=== PATIENT | female | born 1975 | race Caucasian/White ===

== ENCOUNTER 2018-10-17 11:48 | Outpatient (REF) | payer BC, SELFPAY ==
[2018-10-17 20:43] LABS: HGB 13.2 g/dL (12.0-15.5)
[2018-10-17 21:03] LABS: ALT 37 U/L (12-78); AST 25 U/L (15-37); Albumin 3.6 g/dL (3.4-5.0); Alkaline Phosphatase 46 U/L (46-116); Anion Gap 9.7 mmol/L (3-11); BUN 8 mg/dL (7-18); Bilirubin, Total 0.3 mg/dL (0.2-1.0); CO2 26.3 mmol/L (21.0-32.0); CREATININE 0.77 mg/dL (0.55-1.02); Chloride 103 mmol/L (98-107); Glucose 99 mg/dL (70-100); Potassium 3.7 mmol/L (3.5-5.1); Sodium 139 mmol/L (136-145); TSH 0.02 uIU/mL (0.358-3.74); Total Protein 6.7 g/dL (6.4-8.2)
[2018-10-20 09:40] LABS: Prolactin 10.7 ng/ml
== END 2018-10-17 12:08 ==
LOC: LBN 11:48
PROVIDERS: PCP Family Medicine; Visit Provider Internal Medicine Endocrinology, Diabetes & Metabolism
DX: E06.5 Other chronic thyroiditis (principal)
CPT/HCPCS: 80053; 84146; 84443; 85014; 85018

== ENCOUNTER 2019-08-24 12:55 | Outpatient (REF) | payer BC, SELFPAY ==
--- NOTE | 2019-08-24 12:00 | PAPFT_PTH ---
PATIENT: Shereen Dennison LOC: [facility] U#:[id number] AGE/SX: 44/F ROOM: RE08/24/[address]: Cayla Arreola : 1975 BED: DIS: 08/24/2019 SPEC #: [id number] RECD: 08/25/19 13:05 STATUS: DELBERT REQ #: [id number] CAROL: 08/24/19 12:[address]: Cayla Arreola DEPT: [facility] Cytology RECD BY: Pili Shepherd ENTERED: 08/25/19 13:05 SP TYPE: PAPFT OTHR DR: Pooja Goyal Tissues: 1 - CX/ENDOCX FOR PAP SMEARS Procedures: PAP THIN PREP/[facility] Screening Comments: [id number] (UNSATISFACTORY FOR EVALUATION)
[2019-08-24 21:50] LABS: Abs Immature Grans 0.01 k/cumm (0.0-0.09); Absolute Basophil Count 0.03 k/cumm (0.0-0.2); Absolute Eosinophil Count 0.17 k/cumm (0.0-0.7); Absolute Lymphocyte Count 1.16 k/cumm (1.2-3.4); Absolute Monocyte Count 0.35 k/cumm (0.11-0.7); Absolute Neutrophil Count 3.14 k/cumm (1.2-6.7); Basophils % 0.6; Eosinophils % 3.5; HCT 40.2 % (36.0-46.0); HGB 13.6 g/dL (12.0-15.5); Immature Grans % 0.2; Lymphocytes % 23.9; Mean Corp. HGB Concentration 33.8 g/dL (32.0-36.0); Mean Corpuscular Hemoglobin 33.2 pg (27.0-33.0); Mean Platelet Volume 11.4 fL (8.0-11.0); Monocytes % 7.2; Neutrophils % 64.6; Platelet Count 177 x1000/uL (130-400); White Blood Cell Count 4.86 k/cumm (4.4-10.8)
[2019-08-24 22:11] LABS: BUN 14 mg/dL (7-18); CREATININE 0.69 mg/dL (0.55-1.02); Calcium 9.5 mg/dL (8.5-10.1); Calculated LDL 60 mg/dL; Chloride 102 mmol/L (98-107); Cholesterol 186 mg/dL (50-200); Glucose 96 mg/dL (70-100); HDL Cholesterol 121 mg/dL (40-60); Potassium 4.3 mmol/L (3.5-5.1); Sodium 139 mmol/L (136-145); TSH (W/Ref FT4) 0.08 uIU/mL (0.36-3.74); Triglyceride 27 mg/dL (30-150)
[2019-08-24 22:43] LABS: FREE T4 0.65 ng/dL (0.76-1.46)
== END 2019-08-24 13:15 ==
LOC: NCHCN 12:55
PROVIDERS: PCP Family Medicine; Visit Provider Family Medicine
DX: Z00.00 Encounter for general adult medical examination without abnormal findings (principal); E05.00 Thyrotoxicosis with diffuse goiter without thyrotoxic crisis or storm; N91.1 Secondary amenorrhea; E05.80 Other thyrotoxicosis without thyrotoxic crisis or storm; E03.9 Hypothyroidism, unspecified; R53.83 Other fatigue; Z12.4 Encounter for screening for malignant neoplasm of cervix
CPT/HCPCS: 80048; 80061; 88142; 84439; 84443; 85025

== ENCOUNTER 2020-05-19 15:55 | Outpatient (REF) | payer BC, SELFPAY ==
--- NOTE | 2020-05-19 14:43 | PAPFT_PTH ---
PATIENT: Shereen Dennison LOC: [facility] U#:[id number] AGE/SX: 44/F ROOM: RE05/19/[address]: Randi Weber : 1975 BED: DIS: 05/19/2020 SPEC #: [id number] RECD: 05/20/20 12:42 STATUS: DELBERT RECarli #: [id number] CAROL: 05/19/20 14:[address]: Randi Weber DEPT: [facility] Cytology RECD BY: Pili Shepherd ENTERED: 05/20/20 12:42 SP TYPE: PAPFT OTHR DR: Pooja Goyal Tissues: 1 - CX/ENDOCX FOR PAP SMEARS Procedures: PAP THIN PREP/[facility] Screening HPV DNA PROBE Comments: [id number]
[2020-05-19 21:25] LABS: TSH (W/Ref FT4) 0.35 uIU/mL (0.36-3.74)
[2020-05-19 21:58] LABS: FREE T4 0.69 ng/dL (0.76-1.46)
== END 2020-05-19 16:15 ==
LOC: NCHCN 15:55
PROVIDERS: PCP Family Medicine; Visit Provider Registered Nurse
DX: E07.9 Disorder of thyroid, unspecified (principal); Z00.00 Encounter for general adult medical examination without abnormal findings; Z12.4 Encounter for screening for malignant neoplasm of cervix; Z11.51 Encounter for screening for human papillomavirus (HPV)
CPT/HCPCS: 88142; 84439; 84443; 87624

== ENCOUNTER → 2020-08-01 11:09 | Outpatient (REF) | payer BC, SELFPAY ==
[2020-08-01 22:52] LABS: TSH 0.54 uIU/mL (0.36-3.74)
[2020-08-02 00:12] LABS: FREE T4 0.72 ng/dL (0.76-1.46)
== END ==
LOC: LBN 11:09
PROVIDERS: PCP Family Medicine; Visit Provider Internal Medicine Endocrinology, Diabetes & Metabolism
DX: E03.4 Atrophy of thyroid (acquired) (principal)
CPT/HCPCS: 84439; 84443

== ENCOUNTER 2022-05-30 15:54 | Outpatient (REF) | payer OTHER, SELFPAY ==
[2022-05-30 18:21] LABS: TSH (W/Ref FT4) 0.56 uIU/mL (0.36-3.74)
== END 2022-05-30 15:55 | disposition home or self-care (01) ==
LOC: LBN 15:54
PROVIDERS: PCP Family Medicine; Visit Provider Internal Medicine Endocrinology, Diabetes & Metabolism
DX: E03.4 Atrophy of thyroid (acquired) (principal); Z79.899 Other long term (current) drug therapy
CPT/HCPCS: 84443

== ENCOUNTER 2023-06-12 20:56 | Outpatient (REF) | payer OTHER, SELFPAY ==
[2023-06-12 21:51] LABS: TSH 0.85 uIU/mL (0.36-3.74)
== END 2023-06-12 20:57 | disposition home or self-care (01) ==
LOC: LBN 20:56
PROVIDERS: PCP Family Medicine; Visit Provider Internal Medicine Endocrinology, Diabetes & Metabolism
DX: E07.89 Other specified disorders of thyroid (principal)
CPT/HCPCS: 84443

== ENCOUNTER 2024-08-05 17:26 | Outpatient (REF) | payer SELFPAY ==
--- OUTSIDE RECORDS SUMMARY | 2024-08-05 17:29 | XMS_ITS | Data Portability ---
Author Organization [place] - [facility], [facility] Address [address] [place] [address] Assessment Encounter Date Assessment Date Assessment LastModified by Organization Details LastModified Time 12/06/2023 12/06/2023 she will return in 6 mo for pap, f/u thyroid. [email or web address] Not available 12/06/2023 16:30:41 Plan of Treatment Reminders Order Date Submit Date Provider Last Modified By Organization Details Last Modified Time Details Appointments Nurse Visit 20 2023 03:20P M Not available Not available Not available Lab hemoglobi n (Hb), fingersti ck, blood 2023 024 [email or web address] [facility], [address] [place] [address], [place], [address], 12/08/2023 14:44:56 TSH, serum or plasma 2023 024 [email or web address] [facility] (Registration ), [address] [place] [address] [place], [address], 08/05/2024 16:02:57 pap, LB + HPV 2023 024 [email or web address] [facility] (Registration ), [address] [place] [address] [place], [address], 08/05/2024 16:02:57 Referral gynecolog ist referral - 48 y/o pt with menorrhag ia, known uterine fibroid, wants to review options (not anemic); not intereste d in Mirena 2023 024 PORTAL Tian Camargo MD, [address] [place], [address], 06/11/2024 15:02:05 hand surgeon referral - bilateral carpal tunnel syndrome not respondin g to conservat rayna managemen t 2023 024 [facility] - Orthopedic Dept Not PT, [address] [place], [address], 03/18/2024 19:54:37 Procedures None recorded. Surgeries None recorded. Imaging MAMMO, screening , bilateral 2023 PORTAL [facility] (Registration ), [address] [place] [address] [place], [address], 08/04/2024 17:10:42 Medication Orders zolpidem 5 mg tablet 2023 024 TOO [facility], [address] [facility] [address], [place], [address], 12/06/2023 17:07:20 Patient TargetsNo targets recorded. Patient InstructionsNo instructions recorded. Reason for Referral Hand Surgeon Referral for Bi lateral carpal tunnel syndrome bilateral carpal tunnel syndrome not responding to conservative management Referring Physician: [facility], Encounter Date: 12/06/2023 Executive Chef Assistant Referral for Me norrhagia 48 y/o pt with menorrhagia, known uterine fibroid, wants to review options (not anemic); not interested in Mirena Referring Physician: [facility], Encounter Date: 12/06/2023 Results Created Date Observation Date Name Description Value Unit Range Abnormal Flag Note LastModifiedBy Organization Detail LastModifiedTime 12/06/19 24 12/06/2023 hemog lobin (Hb), finge rstic k, blood HGB 14.1 g/dL Not Available [address], [place], [address], 12/06/2023 16:47:11 01/26/20 24 01/26/2024 STREP GROUP A ANTIG EN ASSAY grp A strep antigen DETECT ED Note: Due to the lack of sensi tivit y of antig en assay , all negat rayna resul ts shoul d be confi rmed by cultu re. If dual swabs were submi tted, a cultu re was order ed and plant ed if antig en was negat rayna. Not Available [facility] (Lab) [address] [place] [address], [place], [address], 01/26/2024 10:24:07 07/17/20 24 05/11/2020 US, pelvi s No observ ation record ed. Not Available 07/17 00:05:30 07/17/20 24 01/19/2019 XR, chest No observ ation record ed. Not Available 07/17 00:06:07 07/17/20 24 05/12/2020 US, pelvi s, trans abdom inal + trans vagin al No observ ation record ed. Not Available 07/17 00:06:23 07/17/20 24 03/02/2020 MAMMO , scree kane No observ ation record ed. Not Available 07/17 00:06:26 07/17/20 24 05/12/2020 MAMMO , tomos ynthe sis, scree kane No observ ation record ed. Not Available 07/17 00:06:27 Result Notes None recorded. Problems Name Problem SNOMED Code Status Onset Date Resolution Date Notes Provider Name and Address Organization Details Recorded Time Loss of appetite 16949782 Active 2006 Problem Code: R63.0; Problem Code Type: ICD-10; Not Available [facility] 3 04:58:07 Generali zed anxiety disorder 29360315 Active 2006 Problem Code: F41.1; Problem Code Type: ICD-10; Not Available [facility] 3 04:58:07 Family history of Cardiova scular disease 108557451 Active 2006 Problem Code: Z82.49; Problem Code Type: ICD-10; Not Available [facility] 3 04:58:08 Family history of breast cancer 332965600 Active 2006 Problem Code: Z80.3; Problem Code Type: ICD-10; Not Available [facility] 3 04:58:08 History of psychiat edwardo disorder 602803516 Active 2014 Problem Code: Z86.59; Problem Code Type: ICD-10; Not Available [facility] 3 04:58:08 Hypothyr oidism 69360049 Active 201405/20/20 16 - Comments only - Kathleen Diop M.D. - pt reports she has lowered her armour thyroid in response to low TSH. she will continue lower dose and will be in touch w/ her endocrin ologist. we will repeat TSH and FT4 in 6-8 wks. Problem Code: E03.9; Problem Code Type: ICD-10; Not Available [facility] 3 04:58:08 Eating disorder 82382373 Active 201405/20/20 16 - Comments only - Kathleen Diop M.D. - under control per self-rep ort. she has gained weight compared to last visit, although that was 1.5 yrs ago, so I'm not sure her current trajecto ry. again, I encourag ed her to connect again w/ her counselo r. she is to f/u closely w/ me, and has schedule d appt after that w/ her PCP (who didn't have availabl e appts in 2 wks). Problem Code: F50.9; Problem Code Type: ICD-10; Not Available [facility] 3 04:58:08 Fatigue 01933126 Active 2014 Problem Code: R53.83; Problem Code Type: ICD-10; Not Available [facility] 3 04:58:08 Constipa tion 69451562 Active 2014 Problem Code: K59.09; Problem Code Type: ICD-10; Not Available [facility] 3 04:58:08 Acute sinusiti s 98793385 Completed 201612/24/2016 12/10/19 17 - Comments only - Liliya Sawyer MD - given duration of sx, advised tx with abx. REviewed option of probioti cs to reduce chance of secondar y diarrhea . Reviewed indicati ons for re-evalu ation. Problem Code: J01.90; Problem Code Type: ICD-10; Not Available [facility] 3 04:58:08 Bilatera l carpal tunnel syndrome 49573034555 418312 Active 201601/26/20 17 - Comments only - Liliya Sawyer MD - dispense d bilat wrist splints, advised use as much as possible . NSAIDs. Referral to ortho for consider ation of CT release. cc: [facility] Problem Code: G56.03; Problem Code Type: ICD-10; Not Available [facility] 3 04:58:09 Abdomina l pain 32757513 Completed 201603/18/2017 02/16/20 17 - Comments only - Kathleen Diop M.D. - UA and UPT negative . based on hx and exam, most likely gastriti s. ddx includes gastric ulcer, IBS, gluten exposure , infectio us etiology . less likely gallblad jamir. will trial H2 frantz, simethic one prn, peppermi nt oil/tea. close f/u in 2 wks. if no better, consider labs and/or imaging. Problem Code: R10.9; Problem Code Type: ICD-10; Not Available [facility] 3 04:58:09 Snoring 61199133 Active 2016 Problem Code: R06.83; Problem Code Type: ICD-10; Not Available [facility] 3 04:58:09 Thyrotox icosis 15642266 Active 2017 Problem Code: E05.80; Problem Code Type: ICD-10; Not Available [facility] 3 04:58:09 Secondar y amenorrh ea 819825262 Active 2017 Problem Code: N91.1; Problem Code Type: ICD-10; Not Available [facility] 3 04:58:09 Toxic diffuse goiter with no crisis 736919844 Active 201810/23/20 19 - Comments only - Liliya Sawyer MD - with iatrogen ic hyperthy roidism. Plans to sched f/u with [place] [facility] [place] I hope they will carefull y review the risks of continue d over-rep lacement of thyroid hormone. Problem Code: E05.00; Problem Code Type: ICD-10; Not Available [facility] 3 04:58:09 Premenst rual tension syndrome 87372559 Active 2018 Problem Code: N94.3; Problem Code Type: ICD-10; Not Available [facility] 3 04:58:09 Irregula r periods 07489425 Active 2018 Problem Code: N92.6; Problem Code Type: ICD-10; Not Available [facility] 3 04:58:09 Disorder of hematopo ietic structur e 098868454 Active 2018 Problem Code: D75.89; Problem Code Type: ICD-10; Not Available [facility] 3 04:58:10 Acute upper respirat ory infectio n 20138296 Completed 201810/30/2019 10/23/20 19 - Comments only - Liliya Sawyer MD - Conserva tive treatmen t recommen ded. Reviewed indicati ons for re-evalu ation. Problem Code: J06.9; Problem Code Type: ICD-10; Not Available [facility] 3 04:58:10 Excessiv e and frequent menstrua tion 237122204 Active 2018 Problem Code: N92.0; Problem Code Type: ICD-10; Not Available [facility] 3 04:58:10 Dysmenor gina 603885927 Active 201810/23/20 19 - Comments only - Liliya Sawyer MD - and menorrkrys sagastume with concern for possible uterine enlargem ent on recent pelvic exam. Missed sched pelvic u/s (cx'd due to menses). Advised she r/s. DDX includes fibroid, endometr iosis (+FH of both). Reviewed option of prog-rel easing IUD to help manage sx. Problem Code: N94.6; Problem Code Type: ICD-10; Not Available [facility] 3 04:58:10 At risk - finding 283154768 Active 201810/23/20 19 - Comments only - Liliya Sawyer MD - Advised she discuss with endocrin e provider whether initial scg DEXA is indicate d now, or if not, at what age she should start osteopor osis scg. REviewed recom's for Vit D and Ca which is she getting currentl y. Problem Code: Z91.89; Problem Code Type: ICD-10; Not Available [facility] 3 04:58:10 Adult health examinat ion Active 2019 Problem Code: Z00.00; Problem Code Type: ICD-10; Not Available [facility] 3 04:58:10 Thyrotox icosis 39821502 Completed 201007/31/2023 Problem Code: 242.90; Problem Code Type: ICD-9; Not Available [facility] 3 04:58:10 Hypertro phy of uterus 165102791 Completed 201805/19/2020 Problem Code: N85.2; Problem Code Type: ICD-10; Not Available [facility] 3 04:58:11 Disorder of thyroid gland 46309420 Completed 201805/19/2020 Problem Code: E07.9; Problem Code Type: ICD-10; Not Available [facility] 3 04:58:11 Screenin g for malignan t neoplasm of cervix Completed 201805/19/2020 Problem Code: Z12.4; Problem Code Type: ICD-10; Not Available [facility] 3 04:58:11 Underwei ght 368639289 Completed 201201/25/2017 Problem Code: R63.6; Problem Code Type: ICD-10; Not Available [facility] 3 04:58:11 Screenin g mammogra phy Completed 201910/27/2020 Problem Code: Z12.31; Problem Code Type: ICD-10; Not Available [facility] 3 04:58:11 Premenst rual tension syndrome 59910143 Completed 200605/19/2020 Not Available [facility] 3 04:58:12 Urticari a 082558623 Completed 201605/19/2020 Problem Code: L50.9; Problem Code Type: ICD-10; Not Available [facility] 3 04:58:12 Hyperlip idemia screenin g Completed 201805/19/2020 Problem Code: Z13.220; Problem Code Type: ICD-10; Not Available [facility] 3 04:58:12 Nausea and vomiting 99505548 Completed 201608/09/2017 Problem Code: R11.2; Problem Code Type: ICD-10; Not Available [facility] 3 04:58:12 Dizzines s and giddines s 146417628 Completed 201505/19/2020 Problem Code: R42; Problem Code Type: ICD-10; Not Available [facility] 3 04:58:13 Amenorrh ea 33983350 Completed 201505/19/2020 Problem Code: N91.2; Problem Code Type: ICD-10; Not Available [facility] 3 04:58:13 Insomnia 948184640 Active [address], [facility] [address] , [facility] 4 15:14:33 Menorrha av 174015637 Active 2023 MD [address], [facility] [address] , [facility] 4 15:21:58 Notes:*Problem Name: Fam Hx Breast Canc *Problem Status: inactive *Comments: *Problem Code: V16.3 *Problem Code Type: ICD-9 *Note Date: 03/24/2007 *Problem Name: Fam Hx Cad *Problem Status: inactive *Comments: *Problem Code: V17.3 *Problem Code Type: ICD-9 *Note Date: 03/24/2007 Problem Notes None recorded. Procedures Surgical History None recorded. Imaging Results Imaging Date Name Status LastModified by Organization Details LastModified Time 05/11/2020 US, pelvis completed Information no t available 07/17/2024 00:05:30 01/19/2019 XR, chest completed Information no t available 07/17/2024 00:06:07 05/12/2020 US, pelvis, transabdominal + transvaginal completed Information not available 07/17/2024 00:06:23 03/02/2020 MAMMO, screening completed Informat ion not available 07/17/2024 00:06:26 05/12/2020 MAMMO, tomosynthesis, screening completed Information not available 07/17/2024 00:06:27 Procedure Notes None recorded. Medical Equipment None Reported. Allergies Allergen ID Allergen Name Allergen Category Reaction Reaction Severity Criticality Documentation Date Start Date Code Code System Note Provider Name and Address Organization Details Recorded Time 85035 sulfadiaz ine medicatio n anaphylax is Not available Not available 09/13/20232006 75579 RxNorm throa t close s up Aller gyRea ction : 'thro at close s up'; Not Available [facility] 3 16:18:43 Medications Name Sig Start Date Stop Date Status Note LastModified by Organization Details LastModified Time Miralax 17 gram oral powder packet 12/10 completed Not Available Not Available Not Available Augmentin 875 mg-125 mg tablet Take 1 tab by mouth twice daily. 12/24 completed Not Available Not Available Not Available [place] Thyroid 90 mg tablet Take 1 tab by mouth daily 08/[address] ed by Dr Wong Not Available Not Available Not Available penicilli n V potassium 500 mg tablet TAKE ONE TABLET BY MOUTH THREE TIMES DAILY active Not Available Not Available No t Available amoxicill in 500 mg tablet Take 1 tablet by mouth three times a day for 7 days 12/06 completed Not Available Not Available Not Available ketorolac 10 mg tablet 1TAB q6h 12/16 completed Not Available Not Available Not Available levothyro xine 88 mcg tablet Take 1 tab by mouth daily 08/[address] brooke wong MD Not Available Not Available Not Available levothyro xine 125 mcg tablet 1/2 qd 08/27 completed Not Available Not Available Not Available ranitidin e 150 mg tablet one tab twice a day 10/23 completed Not Available Not Available Not Available ursodiol 300 mg capsule 1TAB daily 12/16 completed Not Available Not Available Not Available docusate sodium 100 mg capsule 1TAB twice daily 2013 active Not Available Not Available Not Avai lable zolpidem 5 mg tablet Take 1 tablet every day by oral route as needed. active Not Available Not Available No t Available docusate sodium 100 mg tablet 1-2 daily 02/15 completed Not Available Not Available Not Available Flexeril 5 mg tablet 1 TAB three times daily 09/07 completed Not Available Not Available Not Available Miralax powder 1 TBSP daily 2013 active Not Available Not Available Not Avai lable Benzaclin daily 03/03 completed Not Available Not Available Not Available ProAir HFA 90 mcg/actua tion aerosol inhaler Inhale 2 puffs by mouth every 4 hours as needed 12/10 completed rx's al ER Not Available Not Available Not Available EQUINE DENTIST Thyroid 60 mg tablet TAKE 1 TABLET BY MOUTH ONCE DAILY WITH 1-2 15MCG TABLETS FOR TOTAL DOSE OF 75MCG ALTERNAT ING WITH 90MCG active Not Available Not Available No t Available Flonase Allergy Relief 50 mcg/actua tion nasal spray,[employer] [place] 1 spray into both nostrils twice a day 07/04 completed Not Available Not Available Not Available EQUINE DENTIST Thyroid 15 mg tablet TAKE 1 TABLET BY MOUTH EVERY OTHER DAY WITH 60MCG, ALTERNAT E WITH 2 TABLETS EVERY OTHER DAY (70KMS04 MCG EVERY OTHER DAY) active Not Available Not Available No t Available Vitals Date Recorded Body height Oxygen saturation Oxygen saturation in Arterial blood by Pulse oximetry Heart rate Body temperature Body mass index (BMI) Body weight Systolic blood pressure Diastolic blood pressure Provider Name and Address Organization Details Last Updated DateTime 157.48 cm 100 % 100 % 76 /min 97.9 [degF] 22.4 kg/m2 95413.4 2 g 102 mm[Hg] 72 mm[Hg] Jessica Doyle LPN [facility] 14:45:02 Social History Question Answer Notes LastModified by Organizat ion Details LastModified Time Tobacco Smoking Status Former Smoker Jessica Doyle LPN null, [facility] 12/06/2023 14:37:45 When Did You Quit Smoking? 16+yearssin yuan saenz [email or web address] Information not available 12/06/2023 Would You Say That, In General, Your Health Is Very Good Information not available 12/06/2023 Women Aged 18-50 - Would You Like To Become In The Next Year? (Female Patients Only) No [email or web address] Information not available 12/06/2023 How Often Does Anyone, Including Family, Physically Hurt You? Never [email or web address] Information not available 12/06/2023 How Often Does Anyone, Including Family, Insult Or Talk Down To You? Never [email or web address] Information no t available 12/06/2023 How Often Does Anyone, Including Family, Threaten You With Harm? Never [email or web address] Information not available 12/06/2023 How Often Does Anyone, Including Family, Scream Or Curse At You? Rarely [email or web address] Information not available 12/06/2023 Within The Past 12 Months, You Worried That Your Food Would Run Out Before You Got Money To Buy More. Never True [email or web address] Information n ot available 12/06/2023 Within The Past 12 Months, The Food You Bought Just Didn't Last And You Didn't Have Money To Get More. Never True [email or web address] Information not available 12/06/2023 How Hard Is It For You To Pay For The Very Basics Like Food, Housing, Medical Care, And Heating? Would You Say It Is: Very Hard [email or web address] Information not available 12/06/2023 In The Past 12 Months, Has Lack Of Reliable Transportation Kept You From Medical Appointments, Meetings, Work Or From Getting Things Needed For Daily Living? No [email or web address] Information not available 12/06/2023 What Is Your Housing Situation Today? I Have Housing. [email or web address] Information not available 12/06/2023 How Often In The Past Year Have You Used Marijuana (including Smoking, Vaping, Dabbing, Or Edibles)? Never [email or web address] Information not available 12/06/2023 How Often In The Past Year Have You Used Prescription Medications That Were Not Prescribed To You? Never [email or web address] Information not available 12/06/2023 How Often In The Past Year Have You Taken Your Own Prescription Medication More Than The Way It Was Prescribed Or For Different Reasons Than Its Intended Purpose? Never [email or web address] Information not available 12/06/2023 How Often In The Past Year Have You Used Other Drugs (for Example, Heroin, Cocaine, Meth, Salvia, Inhalants)? Never [email or web address] Information not available 12/06/2023 Have You Ever Used IV Drugs? No [email or web address] Information not available 12/06/2023 Date Of Most Recent SBINS 12/06/2023 Information not available 12/06/2023 Sex: Female Functional Status None recorded. Mental Status None recorded. Family History Relationship Description Onset Age of this Age Resolved Age Notes LastModified by Organization Details LastModified Time Father No current problems or disability [email or web address] Not available 12/2023 16:22:20 Mother No current problems or disability [email or web address] Not available 12/2023 16:22:20 Notes:*Problem: father - hx of thyroid disease and heart attack 03/24/07 Maternal aunt with history of breast cancer. Paternal grandfather with history of early CAD. Aunt, mom, sister all with hysterectomy. Son recently dx with congestive heart failure. Medical History No medical history recorded. Gynecological HistoryNo gynecological history recorded. Obstetrics History GPAL:G 0 P 0 0 0 0 Immunizations Vaccine Type Date Status Provider Name and Address Organization Details Recorded Time Influenza, split virus, quadrivalent, PF 12/06/2023 completed MD [address], [place], [address], [facility]. 12/06/2023 17:06:34 Tdap 12/06/2023 completed MD [address]pez [address], [place], [address] 12/06/2023 17:06:34 COVID-19, mRNA, LNP-S, PF, germain-sucrose, 30 mcg/0.3 mL 12/06/2023 completed MD López [address], [facility] [id number] [place] [address] 12/06/2023 17:06:34 Td(adult) unspecified formulation 04/04/2006 completed Not Available [facility] 09/13/2023 03:52:39 Past Encounters Encounter ID Performer Location Encounter Start Date Encounter Closed Date Diagnosis/Indication Diagnosis SNOMED-CT Code Diagnosis ICD10 Code [id number] LILIYA SAWYER MD [address] [address] 12/06/2023 14:13:42 12/06/2023 15:37:14 Insomnia 487228794 G47.00 Menorrhagia 336438955 N9 2.0 Active or passive immunization 396329692 Z23 Adult heal th examination 943108213 Z00.00 Screening for malignant neoplasm of colon 644319625 Z12.11 Screening mammography 24 900283 Z12.31 Bilateral carpal tunnel syndrome 3586489444 8503622 G56.03 Toxic diff use goiter with no crisis 303169708 E05.00 [id number] AGUSTIN LEO LPN [address] [address] 08/05/2024 14:48:41 08/05/2024 15:11:49 Screening for malignant neoplasm of cervix 728958979 Z12.4 Hypothyroidism 97830655 E03.9 Health Concerns Section Related Observation LastModified by Organization Detai ls LastModified Time None Recorded Concern Status LastModified by Organization Details LastModified Time None Recorded Advance Directives Directive None Recorded Payers Encounter Date Sequence Insurance Name Policy Number Policy Ibarra Covered Member ID Ibarra Member ID Guarantor Name 12/06/2023 1 *SELF PAY* Er in D Dennison 08/05/2024 1 *SELF PAY* Er in D Dennison Notes Date Note Type Note Provider Name and Address Organization Details Recorded Time 12/06/2023 text/html HPI Notes: Patient here for annual exam. Concerns include trouble sleeping related to stress, her 27-year-old son was just diagnosed with CHF, cause uncertain. Also having numbness and tingling in both hands and forearm, right worse than left, worse when she first gets up and first part of the day, not relieved by night splints or stretches. She has heavy periods, generally fairly regular with no skip cycles. No vasomotor changes. Has bladder pressure during the week of her menses. LILIYA SAWYER MD [address], [place], [address], [facility]. 12/06/2023 17:07:22 OBGyn Episode No OBEpisode recorded.
--- OUTSIDE RECORDS SUMMARY | 2024-08-05 17:29 | XMS_ITS | Continuity of Care Document ---
Author Organization [place] - [facility], [facility] Address [address] [place] [address] Assessment No assessment recorded. Plan of Treatment Reminders Order Date Submit Date Provider Last Modified By Organization Details Last Modified Time Details Appointments Nurse Visit 20 2023 03:20P M Not available Not available Not available Lab TSH, serum or plasma 2023 024 [email or web address] [facility] (Registration ), [address] [place] [address] [place], [address], 08/05/2024 16:02:57 pap, LB + HPV 2023 024 [id number] [facility] (Registration ), [address] [place] [address] [place], [address], 08/05/2024 16:02:57 Referral None recorded . Procedures None recorded . Surgeries None recorded . Imaging None recorded . Medication Orders None recorded . Patient TargetsNo targets recorded. Patient InstructionsNo instructions recorded. Reason for Referral Hand Surgeon Referral for Bi lateral carpal tunnel syndrome bilateral carpal tunnel syndrome not responding to conservative management Referring Physician: Liliya Sawyer Family Medicine, Encounter Date: 12/06/2023 [employer] Referral for Me norrhagia 48 y/o pt with menorrhagia, known uterine fibroid, wants to review options (not anemic); not interested in Mirena Referring Physician: Liliya Sawyer Family Medicine, Encounter Date: 12/06/2023 Results Created Date Observation Date Name Description Value Unit Range Abnormal Flag Note LastModifiedBy Organization Detail LastModifiedTime 07/17/20 24 05/11/2020 US, pelvi s No [...] Organization Details Recorded Time Loss of appetite 78754797 Active 2006 Problem Code: R63.0; Problem Code Type: ICD-10; Not Available [facility] 3 04:58:07 Generali zed anxiety disorder 42313760 Active 2006 Problem Code: F41.1; Problem Code Type: ICD-10; Not Available [facility] 3 04:58:07 Family history of Cardiova scular disease 656915375 Active 2006 Problem Code: Z82.49; Problem Code Type: ICD-10; Not Available [facility] 3 04:58:08 Family history of breast cancer 429972296 Active 2006 Problem Code: Z80.3; Problem Code Type: ICD-10; Not Available [facility] 3 04:58:08 History of psychiat edwardo disorder 615897364 Active 2014 Problem Code: Z86.59; Problem Code Type: ICD-10; Not Available [facility] 3 04:58:08 Hypothyr oidism 69133434 Active 201405/20/20 16 - Comments only - Kathleen Diop M.D. - pt reports she has lowered her armour thyroid in response to low TSH. she will continue lower dose and will be in touch w/ her endocrin ologist. we will repeat TSH and FT4 in 6-8 wks. Problem Code: E03.9; Problem Code Type: ICD-10; Not Available [facility] 3 04:58:08 Eating disorder 74611940 Active 201405/20/20 16 - Comments only - [...] F50.9; Problem Code Type: ICD-10; Not Available [facility] 3 04:58:08 Fatigue 05836041 Active 2014 Problem Code: R53.83; Problem Code Type: ICD-10; Not Available [facility] 3 04:58:08 Constipa tion 40722211 Active 2014 Problem Code: K59.09; Problem Code Type: ICD-10; Not Available [facility] 3 04:58:08 Acute sinusiti s 03200154 Completed 201612/24/2016 12/10/19 17 - Comments only - Liliya Sawyer MD - given duration of sx, advised tx with abx. REviewed option of probioti cs to reduce chance of secondar y diarrhea . Reviewed indicati ons for re-evalu ation. Problem Code: J01.90; Problem Code Type: ICD-10; Not Available [facility] 3 04:58:08 Bilatera l carpal tunnel syndrome 55725398304 312153 Active 201601/26/20 17 - Comments only - Liliya Sawyer MD - dispense d bilat wrist splints, advised use as much as possible . NSAIDs. Referral to ortho for consider ation of CT release. cc: [facility] Problem Code: G56.03; Problem Code Type: ICD-10; Not Available [facility] 3 04:58:09 Abdomina l pain 32216372 Completed 201603/18/2017 02/16/20 17 - Comments only [...] R10.9; Problem Code Type: ICD-10; Not Available [facility] 3 04:58:09 Snoring 51512177 Active 2016 Problem Code: R06.83; Problem Code Type: ICD-10; Not Available [facility] 3 04:58:09 Thyrotox icosis 61111561 Active 2017 Problem Code: E05.80; Problem Code Type: ICD-10; Not Available [facility] 3 04:58:09 Secondar y amenorrh ea 256623487 Active 2017 Problem Code: N91.1; Problem Code Type: ICD-10; Not Available [facility] 3 04:58:09 Toxic diffuse goiter with no crisis 999215256 Active 201810/23/20 19 - Comments only - Liliya Sawyer MD - with iatrogen ic hyperthy roidism. Plans to sched f/u with new endocrin e provider at [facility]. I hope they will carefull y review the risks of continue d over-rep lacement of thyroid hormone. Problem Code: E05.00; Problem Code Type: ICD-10; Not Available [facility] 3 04:58:09 Premenst rual tension syndrome 54956537 Active 2018 Problem Code: N94.3; Problem Code Type: ICD-10; Not Available [facility] 3 04:58:09 Irregula r periods 14223859 Active 2018 Problem Code: N92.6; Problem Code Type: ICD-10; Not Available [facility] 3 04:58:09 Disorder of hematopo ietic structur e 990844838 Active 2018 Problem Code: D75.89; Problem Code Type: ICD-10; Not Available [facility] 3 04:58:10 Acute upper respirat ory infectio n 64831620 Completed 201810/30/2019 10/23/20 19 - Comments only - Liliya Sawyer MD - Conserva tive treatmen t recommen ded. Reviewed indicati ons for re-evalu ation. Problem Code: J06.9; Problem Code Type: ICD-10; Not Available [facility] 3 04:58:10 Excessiv e and frequent menstrua tion 544195659 Active 2018 Problem Code: N92.0; Problem Code Type: ICD-10; Not Available [facility] 3 04:58:10 Dysmenor gina 934746855 Active 201810/23/20 19 - Comments only - Liliya Sawyer MD - and jas sagastume with concern for possible uterine enlargem ent on recent pelvic exam. Missed sched pelvic u/s (cx'd due to menses). Advised she r/s. DDX includes fibroid, endometr iosis (+FH of both). Reviewed option of prog-rel easing IUD to help manage sx. Problem Code: N94.6; Problem Code Type: ICD-10; Not Available [facility] 3 04:58:10 At risk - finding 435815225 Active 201810/23/20 19 - Comments only - Liliya Sawyer MD - Advised she discuss with endocrin e provider whether initial scg DEXA is indicate d now, or if not, at what age she should start osteopor osis scg. REviewed recom's for Vit D and Ca which is she getting currentl y. Problem Code: Z91.89; Problem Code Type: ICD-10; Not Available [facility] 3 04:58:10 Adult health examinat ion Active 2019 Problem Code: Z00.00; Problem Code Type: ICD-10; Not Available [facility] 3 04:58:10 Thyrotox icosis 36381694 Completed 201007/31/2023 Problem Code: 242.90; Problem Code Type: ICD-9; Not Available [facility] 3 04:58:10 Hypertro phy of uterus 387454616 Completed 201805/19/2020 Problem Code: N85.2; Problem Code Type: ICD-10; Not Available [facility] 3 04:58:11 Disorder of thyroid gland 16048889 Completed 201805/19/2020 Problem Code: E07.9; Problem Code Type: ICD-10; Not Available [facility] 3 04:58:11 Screenin g for malignan t neoplasm of cervix Completed 201805/19/2020 Problem Code: Z12.4; Problem Code Type: ICD-10; Not Available [facility] 3 04:58:11 Underwei ght 567263939 Completed 201201/25/2017 Problem Code: R63.6; Problem Code Type: ICD-10; Not Available [facility] 3 04:58:11 Screenin g mammogra phy Completed 201910/27/2020 Problem Code: Z12.31; Problem Code Type: ICD-10; Not Available [facility] 3 04:58:11 Premenst rual tension syndrome 81443968 Completed 200605/19/2020 Not Available [facility] 3 04:58:12 Urticari a 499635133 Completed 201605/19/2020 Problem Code: L50.9; Problem Code Type: ICD-10; Not Available [facility] 3 04:58:12 Hyperlip idemia screenin g Completed 201805/19/2020 Problem Code: Z13.220; Problem Code Type: ICD-10; Not Available [facility] 3 04:58:12 Nausea and vomiting 15558512 Completed 201608/09/2017 Problem Code: R11.2; Problem Code Type: ICD-10; Not Available [facility] 3 04:58:12 Dizzines s and giddines s 031335025 Completed 201505/19/2020 Problem Code: R42; Problem Code Type: ICD-10; Not Available [facility] 3 04:58:13 Amenorrh ea 02130863 Completed 201505/19/2020 Problem Code: N91.2; Problem Code Type: ICD-10; Not Available [facility] 3 04:58:13 Insomnia 429677807 Active 2023 LILIYA SAWYER MD [address], [address] 4 15:14:33 Menorrha av 903157808 Active 2023 LILIYA SAWYER MD [address], [address] 4 15:21:58 Notes:*Problem Name: Fam Hx Breast Canc *Problem Status: inactive *Comments: *Problem Code: V16.3 *Problem Code Type: ICD-9 *Note Date: 03/24/2007 *Problem Name: Fam Hx Cad *Problem Status: inactive *Comments: *Problem Code: V17.3 *Problem Code Type: ICD-9 *Note Date: 03/24/2007 Problem Notes None recorded. Medical Equipment None Reported. Allergies Allergen ID Allergen Name Allergen Category Reaction Reaction Severity Criticality Documentation Date Start Date Code Code System Note Provider Name and Address Organization Details Recorded Time 12518 sulfadiaz ine medicatio n anaphylax is Not available Not available 09/13/20232006 73877 RxNorm throa t close s up Aller gyRea ction : 'thro at close s up'; Not Available [facility] 3 16:18:43 Medications Name Sig Start Date Stop Date Status Note LastModified by Organization Details LastModified Time Miralax 17 gram oral powder packet 12/10 completed Not Available Not Available Not Available Augmentin 875 mg-125 mg tablet Take 1 tab by mouth twice daily. 12/24 completed Not Available Not Available Not Available [place] Thyroid 90 mg tablet Take 1 tab by mouth daily 08/[address] ed [address] Pederson Not Available Not Available Not Available penicilli [...] by mouth daily 08/[address] brooke pederson MD Not Available Not Available Not Available [...] ER Not Available Not Available Not Available QUALITY LIAISON Thyroid 60 mg tablet TAKE 1 TABLET BY MOUTH ONCE DAILY WITH 1-2 15MCG TABLETS FOR TOTAL DOSE OF 75MCG ALTERNAT ING WITH 90MCG active Not Available Not Available No t Available Flonase Allergy Relief 50 mcg/actua tion nasal spray,balaji pension [place] 1 spray into both nostrils twice a day 07/04 completed Not Available Not Available Not Available QUALITY LIAISON Thyroid 15 mg tablet TAKE 1 TABLET BY MOUTH EVERY OTHER DAY WITH 60MCG, ALTERNAT E WITH 2 TABLETS EVERY OTHER DAY (62FXF32 MCG EVERY OTHER DAY) active Not Available Not Available No t Available Vitals None Recorded Social History Question Answer Notes LastModified by Organizat ion Details LastModified Time Tobacco Smoking Status Former Smoker Jessica Doyle LPN null, [place] - [facility]. 12/06/2023 14:37:45 When Did You Quit Smoking? 16+yearssin yuan [email or web address] Information not available 12/06/2023 Would You Say That, In General, Your Health Is Very Good [email or web address] Information not available 12/06/2023 Women Aged 18-50 - Would You Like To Become In The Next Year? (Female Patients Only) No [email or web address] Information not available 12/06/2023 How Often Does Anyone, Including Family, Physically Hurt You? Never [email or web address] Information not available 12/06/2023 How Often Does Anyone, Including Family, Insult Or Talk Down To You? Never [email or web address] Information no t available 12/06/2023 How Often Does Anyone, Including Family, Threaten You With Harm? Never [email or web address] Information not available 12/06/2023 How Often Does Anyone, Including Family, Scream Or Curse At You? Rarely [email or web address] Information not available 12/06/2023 Within The Past 12 Months, You Worried That Your Food Would Run Out Before You Got Money To Buy More. Never True [email or web address] Information n ot available 12/06/2023 Within The Past 12 Months, The Food You Bought Just Didn't Last And You Didn't Have Money To Get More. Never True [email or web address] Information not available 12/06/2023 How Hard Is It For You To Pay For The Very Basics Like Food, Housing, Medical Care, And Heating? Would You Say It Is: Very Hard [email or web address] Information not available 12/06/2023 In The Past 12 Months, Has Lack Of Reliable Transportation Kept You From Medical Appointments, Meetings, Work Or From Getting Things Needed For Daily Living? No [email or web address] Information not available 12/06/2023 What Is Your Housing Situation Today? I Have Housing. [email or web address] Information not available 12/06/2023 How Often In The Past Year Have You Used Marijuana (including Smoking, Vaping, Dabbing, Or Edibles)? Never [email or web address] Information not available 12/06/2023 How Often In The Past Year Have You Used Prescription Medications That Were Not Prescribed To You? Never Information not available 12/06/2023 How Often In The Past Year Have You Taken Your Own Prescription Medication More Than The Way It Was Prescribed Or For Different Reasons Than Its Intended Purpose? Never Information not available 12/06/2023 How Often In The Past Year Have You Used Other Drugs (for Example, Heroin, Cocaine, Meth, Salvia, Inhalants)? Never [email or web address] Information not available 12/06/2023 Have You Ever Used IV Drugs? No [email or web address] Information not available 12/06/2023 Date Of Most Recent SBINS 12/06/2023 [email or web address] Information not available 12/06/2023 Sex: Female Functional Status None recorded. Mental Status None recorded. Family History Relationship Description Onset Age of this Age Resolved Age Notes LastModified by Organization Details LastModified Time Father No current problems or disability [email or web address] Not available 12/2023 16:22:20 Mother No current problems or disability [email or web address] Not available 12/2023 16:22:20 Notes:*Problem: father - [...] PF 12/06/2023 completed MD [address], [place], [address], [facility] 12/06/2023 17:06:34 Tdap 12/06/2023 completed MD [address], [place], [address], [facility] 12/06/2023 17:06:34 COVID-19, mRNA, LNP-S, PF, germain-sucrose, 30 mcg/0.3 mL 12/06/2023 completed LILIYA SAWYER MD [address], [place], [address], [facility] 12/06/2023 17:06:34 Td(adult) unspecified formulation 04/04/2006 completed Not Available [facility] 09/13/2023 03:52:39 Past Encounters Encounter ID Performer Location Encounter Start Date Encounter Closed Date Diagnosis/Indication Diagnosis SNOMED-CT Code Diagnosis ICD10 Code [id number] AGUSTIN LEO LPN [address] [address] 08/05/2024 14:48:41 08/05/2024 15:11:49 Screening for malignant neoplasm of cervix 518100936 Z12.4 Hypothyroidism 40570793 E03.9 Health Concerns Section Related Observation LastModified by Organization Detai ls LastModified Time None Recorded Concern Status LastModified by Organization Details LastModified Time None Recorded Payers Encounter Date Sequence Insurance Name Policy Number Policy Ibarra Covered Member ID Ibarra Member ID Guarantor Name 08/05/2024 1 *SELF PAY* Er in D Denn[facility] Episode No OBEpisode recorded.
--- OUTSIDE RECORDS SUMMARY | 2024-08-05 17:29 | XMS_ITS ---
Author Organization Unknown Address [address] [place] [phone] Phone Care Team Providers Care Retail District Manager Name Role Phone LITZY SAUNDERS Attending Unavailable DIGNA LOVELL Primary Unavailable Results THYROID TESTING [place] - Hi llect Date/Time: 06/07/2021 14:11 [facility] ID: [id number] [address] [place], [place], [address] LOINC: 3016-3 Test Value Unit Reference Range Code Code System Flag TSH. 1.184 uIU/mL L=0.360 H=3.740 3014-8 LOINC Social History Type Status Start Date End Date Code Code Syst em Smoking History Former smoker 11/04/19925264 9761805 SNOMED CT Sex Female Medications Medication Start Date End Date Route Frequency Dose Code Code System Medication Instructions Home Meds Penicillin VK 500MG Oral Tablet 01/26/2024 Unknown ORAL THREE TIMES A DAY 1 TABLET 804717 RxNorm TAKE 1 TABLET ORAL THREE TIMES A DAY Hospital Discharge Instructions Should you have any questions prior to discharge, please contact a member of your healthcare team. If you have left the hospital and have any questions, please contact your primary care physician. Reason For Referral No Data Found Problems Problem Start Date Resolved Date Status Code Code System BALTAZAR'S DISEASE 01/26/2024 resolved 84434069 SNOMED-CT GRAVES' DISEASE 01/26/2024 resolved 604496769 SNO MED-CT CELIAC DISEASE 01/26/2024 resolved 531927583 SNOM ED-CT Allergies and Adverse Reactions Allergy Substance Reaction Severity Start Date Concern Status Co de Code System SULFA (sulfonamide) Moderate Active Plan of Treatment Lab Draw 06/07/2021 Encounters Encounter Diagnosis Start Date Code Code Sys tem Atrophy of thyroid - acquired 06/07/2021 773724194 SNOMED-CT Personal Care Team Section Performer Name Performer Role Active Date Inactive Da te
--- OUTSIDE RECORDS SUMMARY | 2024-08-05 17:30 | XMS_ITS ---
Author Organization Unknown Address [address] [place] [phone] Phone Care Team Providers Care Roll Examiner Name Role Phone LAMELL YULIANA Mckinley Attending Unavailable DIGNA Winters Primary Unavailable Social History Type Status Start Date End Date Code Code Syst em Smoking History Former smoker 11/04/199213[address] 0563[address]OM[address] Sex Female Medications Medication Start Date End Date Route Frequency Dose Code Code System Medication Instructions Home Meds Penicillin VK 500MG Oral Tablet 01/26/2024 Unknown ORAL THREE TIMES A DAY 1 TABLET 135175 RxNorm TAKE 1 TABLET ORAL THREE TIMES [...] Code Code System BALTAZAR'S DISEASE 01/26/2024 resolved 37949604 SNOMED-CT GRAVES' DISEASE 01/26/2024 resolved 716292444 SNO MED-CT CELIAC DISEASE 01/26/2024 resolved 076347540 SNOM ED-CT Allergies and Adverse Reactions Allergy Substance Reaction Severity Start Date Concern Status Co de Code System SULFA (sulfonamide) Moderate Active Plan of Treatment Lab Draw 06/07/2021 Encounters Encounter Diagnosis Start Date Code Code Sys tem 02/19/2024 [id number] SNOMED-CT Personal Care Team Section Performer Name Performer Role Active Date Inactive Da roosevelt
--- OUTSIDE RECORDS SUMMARY | 2024-08-05 17:30 | XMS_ITS ---
Author Organization Unknown Address [address] [place], [place] [phone] Phone Care Team Providers Care Greenhouse Superintendent Name Role Phone JUNIE COATS Registered Nurse Unavailable ABHISHEK Fung Attending Unavailable DIGNA Winters Primary Unavailable UNLISTED PROVIDER - REQUESTED Xhandoff Un available Results STREP GROUP A ANTIGEN ASSAY - Collect Date/Time: 01/26/2024 09:35 [facility] ID: [id number] [address] [place] [address] LOINC: 71570-6 Test Value Unit Reference Range Code Code System Flag GRP A STREP ANTIGEN DETECTED 6556-5 LOINC Social History Type Status Start Date End Date Code Code Syst em Smoking History Former smoker 11/04/19925353 9068231 SNOMED CT Sex Female Vital Signs Vital Sign Value Unit Monroe Value Monroe Unit Date/Time Recent/Initial? Code Code System Body Mass Index 21.95 kg/m2 01/26/2024 09:37 Initial 37268 -5 LOINC Systolic Blood Pressure 108 mm[Hg] 01/26/2024 09:37 Initial 8480- 6 LOINC Diastolic Blood Pressure 80 mm[Hg] 01/26/2024 09:37 Initial 8462- 4 LOINC Body Surface Area 1.54 m2 01/26/2024 09:37 Initial 3140- 1 LOINC Height 157.480 0 cm 62.00 in 01/26/2024 09:37 Initial 8302- 2 LOINC O2 Saturation 100 % 2023 09:37 Initial 91010 -5 LOINC Pulse 67.0 /min 01/26/2024 09:37 Initial 8867- 4 LOINC Respiration 16 /min 01/26/20 09:37 Initial 9279- 1 INC Temperature 36.7 Marcelina 98.1 F 01/26/20 09:37 Initial 8310- 5 [facility] Weight 54.43 kg 120.00 lbs 01/26/2024 09:37 Initial 94158 -7 [facility] Medications Medication Start Date End Date Route Frequency Dose Code Code System Medication Instructions Home Meds Penicillin VK 500MG Oral Tablet 01/26/2024 Unknown ORAL THREE TIMES A DAY 1 TABLET 908848 RxNorm TAKE 1 TABLET ORAL THREE TIMES [...] Code Code System BALTAZAR'S DISEASE 01/26/2024 resolved 76144392 SNOMED-CT GRAVES' DISEASE 01/26/2024 resolved 782230951 SNO MED-CT CELIAC DISEASE 01/26/2024 resolved 641456687 SNOM ED-CT Allergies and Adverse Reactions Allergy Substance Reaction Severity Start Date Concern Status Co de Code System SULFA (sulfonamide) Moderate Active Plan of Treatment Lab Draw 06/07/2021 Encounters Encounter Diagnosis Start Date Code Code Sys tem Acute tonsillitis, unspecified 01/26/2024 SNOMED-CT Personal Care Team Section Performer Name Performer Role Active Date Inactive Moisés albert
[2024-08-05 21:34] LABS: TSH 0.65 uIU/Ml (0.36-3.74)
== END 2024-08-05 17:27 | disposition home or self-care (01) ==
LOC: NCHCN 17:26
PROVIDERS: PCP Family Medicine; Visit Provider Family Medicine
DX: E03.9 Hypothyroidism, unspecified (principal)
CPT/HCPCS: 84443

== ENCOUNTER 2025-04-21 15:09 | Outpatient (REF) | payer BC, SELFPAY ==
[2025-04-21 20:55] LABS: HCT 36.1 % (36.0-46.0); HGB 12.4 g/dL (11.2-15.7); MCH 32.5 pg (27.0-33.0); MCHC 34.3 % (32.0-36.0); MCV 95 fL (80-95); MPV 10.8 fL (8.0-11.0); Platelet Count 226 10^3/uL (130-400); RBC 3.81 10^6/uL (3.93-5.22); RDW 12.6 % (11.7-14.6); RDW-SD 43.7 fL; WBC 5.65 10^3/uL (4.4-10.8)
[2025-04-21 21:29] LABS: Anion Gap 7.3 mmol/L (3-11); BUN 11 mg/dL (7-18); CO2 26.7 mmol/L (21.0-32.0); CREATININE 0.8 mg/dL (0.55-1.02); Calcium 8.9 mg/dL (8.5-10.1); Chloride 103 mmol/L (98-107); Estimated GFR 90.27 (mL/min/1.73m2); Glucose 99 mg/dL (74-106); Potassium 4.1 mmol/L (3.5-5.1); Sodium 137 mmol/L (136-145); TSH (W/Ref FT4) 0.94 uIU/mL (0.36-3.74)
[2025-04-21 21:41] LABS: Iron 59 ug/dL (50-170); Total Iron Binding Capacity 285 ug/dL (250-450); Transferrin Sat 21 % (15-50)
== END 2025-04-21 15:10 | disposition home or self-care (01) ==
LOC: NCHCN 15:09
PROVIDERS: PCP Family Medicine; Visit Provider Family Medicine
DX: Z13.0 Encounter for screening for diseases of the blood and blood-forming organs and certain disorders involving the immune mechanism (principal); E03.9 Hypothyroidism, unspecified; R53.83 Other fatigue; N92.0 Excessive and frequent menstruation with regular cycle
CPT/HCPCS: 80048; 85027; 83540; 83550; 84443

== ENCOUNTER 2025-07-21 12:24 | Outpatient (REF) | payer BC, SELFPAY ==
--- NOTE | 2025-07-21 13:00 | PAPFT_PTH ---
PATIENT: Shereen Dennison LOC: [facility] U#:[id number] AGE/SX: 49/F ROOM: RE07/21/[address]: Pooja Goyal : 1975 BED: DIS: 07/21/2025 SPEC #: [id number] RECD: 07/22/25 12:32 STATUS: DELBERT REQ #: [id number] CAROL: 07/21/25 13:[address]: Unknown,Unknown DEPT: [facility] Cytology RECD BY: Pili Shepherd ENTERED: 07/22/25 12:32 SP TYPE: PAPFT OTHR DR: Pooja Goyal Tissues: 1 - CX/ENDOCX FOR PAP SMEARS Procedures: PAP THIN PREP/[facility] Screening HPV DNA PROBE Comments: [id number] (HPV 16 & 18/45)
== END 2025-07-21 12:25 | disposition home or self-care (01) ==
LOC: NCHCN 12:24
PROVIDERS: PCP Family Medicine; Visit Provider Family Medicine
DX: Z12.4 Encounter for screening for malignant neoplasm of cervix (principal)
CPT/HCPCS: 88142; 87624